=== PATIENT | male | born 1940 | race Caucasian/White ===

== ENCOUNTER 2017-12-30 13:10 | Day surgery (SDC) | payer MEDICARE ==
[~2017-12-30] VITALS: Ht 165.1 cm; Wt 65.9 kg
--- NOTE | ~2017-12-30 | OP ---
PATIENT NAME: PILAR MEIER MEDICAL RECORD: [id number] :38 LOCATION:[facility]- ADMISSION DATE:12/30/17 SURGEON: LIMA FAY MD DATE OF OPERATION: 12/30/2017 PROCEDURE: EGD with biopsy. SECURITIES COUNSELOR: Lima Fay MD SCOPE: Olympus video gastroscope. MEDICATIONS: Per TIVA anesthesia. Please see the anesthesiology log for the amount of propofol given. 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 This is a surveillance procedure. This malignancy was found during the patient's 09/06/2017 procedure and the nodules had the appearance of raised ulcerated lesions. The report was sent to and addressed by Dr. Viola Mora, who is the patient's oncologist. FINDINGS: Informed consent was given. The patient was made comfortable with TIVA anesthesia. Again, please see the anesthesiology log. After reaching an adequate level of sedation by slow IV push, the patient was placed on his left side. The endoscope was then advanced under direct visualization through the posterior pharyngeal area and advanced to the distal esophagus. At the distal esophageal area, only mild erosive esophagitis was appreciated and multiple biopsies were obtained. We then advanced the scope into the cardia and fundus of the stomach and retroflexed. This was the area of the previous raised nodular ulcerated lesions, and at this time, they are not present. The patient did have some minimal inflammation however in this area. We then proceeded through the gastric area to the antrum, where only minimal inflammation was again noted. A biopsy was taken at the antral area looking for the presence of Helicobacter pylori. With advancement of the scope, we went into the duodenal bulb, and at the entrance of the C-loop, raised nodular lesions were noted. Erosions were appreciated. No ulcers were seen. Multiple biopsies were obtained of this area. We then went into the second part of the duodenum, where fairly normal tissue was noted. The scope was then withdrawn. IMPRESSION: 1. The patient is having surveillance EGD today, looking for any further evidence of any nodular, raised, ulcerated lesions which were biopsied in the cardia of the stomach and found to be metastatic adenocarcinoma of the lung within the stomach. There is no recurrence of these lesions. 2. Mild erosive distal esophagitis, biopsied. 3. Mild gastritis. Biopsy taken at the antral area. 4. Raised nodular erosive lesions in the C-loop of the duodenum, biopsied extensively. 5. Mild inflammation in the second part of the duodenum. PLAN: 1. The patient should use caution with anti-inflammatory drugs. 2. Follow reflux precautions stringently, both dietary and positional. Use OPERATIVE REPORT [id number] PILAR MEIER caution with chocolate, tomato, citrus, caffeine, fatty foods, peppermint. The patient should not eat late at night and sit up for a couple hours after meals. 3. We will check the biopsies and report these findings to the patient's other physicians; Dr. Mora, Dr. Coronel, Dr. Bobby Mcdowell, Dr. Pradhan, Dr. Solorzano. 4. Return to clinic on a p.r.n. basis. 5. Continue famotidine at 20 mg p.o. b.i.d. 6. We will await the recommendations of Dr. Mora as to the timing of the next EGD procedure. TRANSINT:[id number] Voice Confirmation ID: [id number] DOCUMENT ID: [id number] LIMA FAY MD CC: BOBBY MCDOWELL [place], AMY LYNN MD, OSCAR CHRISTIAN and [id number] DICTATION DATE: 12/30/171621 FEED ADVISER: 12/30/171918 DIS IN 12/30/17 [facility] [address] [place] [address]
[2017-12-30] MEDS ORDERED: VITAMIN D250000 UNIT PO (13:37)
[2017-12-30] MEDS ORDERED: SPIRIVA RESPIMAT4 G1 INH (13:38)
[2017-12-30] MEDS ORDERED: LOVASTATIN20 MG PO (13:38)
[2017-12-30] MEDS ORDERED: XANAX0.5 MG (13:38)
[2017-12-30] MEDS ORDERED: NORVASC10 MG PO (13:39)
[2017-12-30] MEDS ORDERED: UROXATRAL10 MG PO (13:39)
[2017-12-30] MEDS ORDERED: CARAFATE1 G PO (13:40)
[2017-12-30] MEDS ORDERED: LANOXIN125 MCG PO (13:40)
[2017-12-30] MEDS ORDERED: DECADRON4 MG (13:41)
[2017-12-30] MEDS ORDERED: BUMEX 1 MG TAB1 MG (13:41)
[2017-12-30] MEDS ORDERED: CATAPRES0.1 MG (13:41)
[2017-12-30] MEDS ORDERED: NEURONTIN 300300 MG PO (13:42)
[2017-12-30] MEDS ORDERED: COZAAR50 MG (13:42)
[2017-12-30] MEDS ORDERED: COREG 3.1253.125 MG PO (13:42)
[2017-12-30] MEDS ORDERED: ONDANSETRON ODT 8 MG (13:43)
[2017-12-30] MEDS ORDERED: COUMADIN2 MG (13:43)
[2017-12-30] MEDS ORDERED: FISH OIL 1,0001 CA1 PO (13:44)
[2017-12-30] MEDS ORDERED: BAYER ASPIRIN325 MG PO (13:44)
[2017-12-30] MEDS ORDERED: LIPOFEN50 MG (13:45)
[2017-12-30] MEDS ORDERED: PEPCID20 MG (13:45)
[2017-12-30] MEDS ORDERED: PROLIA INJ 660 MG/M1 (13:46)
[2017-12-30 13:54] VITALS: BP 121/64; Ht 165.1 cm; Wt 65.9 kg
[2017-12-30 14:15] LABS: BASOPHILS 0 % (0-2); EOSINOPHILS 2.7 % (0-7); IMMATURE GRANULOCYTES 0.2 % (0-5); LYMPHOCYTES 9.9 % (15-50); MCH 37.8 pg (26.0-34.0); MCHC 34.6 g/dL (31.0-37.0); MCV 109.2 fL (80.0-100.0); MEAN PLATELET VOLUME 9.5 fL (7.4-10.4); MONOCYTES 1.2 % (2-11); PLATELET COUNT 165 10x3/uL (130-400); RBC 2.38 10x6/uL (4.20-6.10); RDW 17.3 % (11.5-14.5)
[2017-12-30 14:31] LABS: CALC OSMOLALITY 268 mosm/kg (275-300); CARBON DIOXIDE 27.4 mmol/L (21.0-32.0); CHLORIDE - SERUM 100 mmol/L (98-107); CREATININE - SERUM 0.8 mg/dL (0.6-1.3); GLUCOSE 93 mg/dL (74-106); POTASSIUM - SERUM 4.1 mmol/L (3.5-5.1); SODIUM 134 mmol/L (136-145); UREA NITROGEN 15 mg/dL (7-18); eGFR NON AFRICAN AMERICAN > 90 mL/min (90-120)
[2017-12-30 14:35] LABS: INR 1.26 (0.85-1.17); PROTIME 15.4 SECONDS (11.6-15.0)
== END 2017-12-30 17:00 | disposition home or self-care (01) ==
LOC: D.OPS 13:10 → D.SDCHOLD 13:23 → D.OPS 15:00 → D.SDCHOLD 17:00 → D.OPS 17:00 → D.SDCHOLD 17:00
PROVIDERS: Anesthesiology
DX: R13.10 Dysphagia, unspecified (principal); Z86.010 Personal history of colon polyps; C34.90 Malignant neoplasm of unspecified part of unspecified bronchus or lung; C78.89 Secondary malignant neoplasm of other digestive organs; K20.9 Esophagitis, unspecified; K29.70 Gastritis, unspecified, without bleeding; Z01.812 Encounter for preprocedural laboratory examination; I10 Essential (primary) hypertension; K21.9 Gastro-esophageal reflux disease without esophagitis; J44.9 Chronic obstructive pulmonary disease, unspecified